=== PATIENT | female | born 1940 | race Caucasian/White ===

== ENCOUNTER 2016-11-13 17:34 | Emergency (ER) | payer MEDICARE, OTHER ==
[2016-11-13 17:50] VITALS: BP 153/75
--- NOTE | 2016-11-13 18:06 | EDM.PDOC ---
ED HISTORY OF PRESENT ILLNESS - General Chief Complaint: Respiratory Problem Stated Complaint: FEVER, CONGESTION Time Seen by Provider: 11/13/16 18:06 Source of Information: Reports: Patient - History of Present Illness INITIAL COMMENTS - FREE TEXT/NARRATIVE: Patient started with fever, cough and myalgias on Tuesday. These have persisted since then, she notes maybe mild improvement since that time. Has had fever up to 106, this does come down with anti-pyretic. She has had decreased appetite, had soup today and tolerating fluids well. She has diabetes, is on only glipizide for this. Was prescribed Levemir for this in the past, only uses if fasting glucose over 100 and she reports not needing this in 2 years. Denies chronic heart or pulmonary disease. - Related Data Allergies/ADRs: Allergies Allergy/AdvReac Type Severity Reaction Status Date / Time Corticosteroids Allergy Swollen Verified 11/13/16 17:45 (Glucocorticoids) Tongue Penicillins Allergy Swollen Verified 11/13/16 17:45 Tongue steroids Allergy Swollen Uncoded 11/13/16 17:45 Tongue Home Meds: Home Meds Cetirizine HCl [Zyrtec] 05/09/14 [History] Furosemide [Lasix] 40 mg PO DAILY 05/09/14 [History] Levothyroxine [Synthroid] 50 mcg PO DAILY 05/09/14 [History] glipiZIDE [Glipizide ER] 10 mg PO DAILY 05/09/14 [History] Aspirin [Ecotrin] 81 mg PO DAILY 11/13/16 [History] Omeprazole 20 mg PO DAILY 11/13/16 [History] Simvastatin [Zocor] 10 mg PO BEDTIME 11/13/16 [History] Social & Family History - Tobacco Use Smoking Status *Q: Never Smoker ED ROS GENERAL - Review of Systems Review Of Systems: See Below Constitutional: Reports: fever, chills, malaise, weakness, fatigue, decreased appetite HEENT: Reports: Rhinitis, Sinus problem. Denies: Throat pain, Vertigo Respiratory: Reports: Shortness of Breath, Cough, Sputum, Hemoptysis. Denies: Wheezing Cardiovascular: Reports: No symptoms GI/Abdominal: Reports: Decreased appetite, Nausea. Denies: Abdominal pain, Constipation, Diarrhea, Vomiting Musculoskeletal: Reports: no symptoms Skin: Reports: no symptoms Neurological: Reports: No Symptoms Psychiatric: Reports: No symptoms ED EXAM, GENERAL - Physical Exam Exam: See Below Exam Limited By: No limitations General Appearance: alert, WD/WN, no apparent distress Ears: normal external exam, normal canal, normal TMs Nose: normal inspection, normal mucosa, clear rhinorrhea Throat/Mouth: Normal inspection, Normal oropharynx Neck: normal inspection, non-tender, full range of motion Respiratory/Chest: no respiratory distress, chest non-tender, wheezing ( Occasional, scattered bilaterally) Course - Vital Signs Last Recorded V/S: Last Vital Signs Temp 98.5 F 11/13/16 17:46 Pulse 71 11/13/16 17:46 Resp 20 11/13/16 17:46 BP 153/75 H 11/13/16 17:46 Pulse Ox 95 11/13/16 17:46 - Orders/Labs/Meds Orders: Active Orders 24 hr Category Date Time Status CXR [Chest 2V] [CR] Stat Exams 11/13/16 18:16 Taken Head wo Cont [CT] Stat Exams 11/13/16 19:37 Ordered TROPONIN I [CHEM] Stat Lab 11/13/16 19:37 Ordered Labs: Laboratory Tests 11/13/16 11/13/16 Range/Units 18:40 18:40 WBC 4.82 (3.98-10.04) K/mm3 RBC 4.05 (3.98-5.22) M/mm3 Hgb 12.0 (11.2-15.7) gm/L Hct 35.4 (34.1-44.9) % MCV 87.4 (79.4-94.8) fl MCH 29.6 (25.6-32.2) pg MCHC 33.9 (32.2-35.5) g/dl RDW Std Deviation 38.4 (36.4-46.3) fL Plt Count 141 L (182-369) K/mm3 MPV 9.4 (9.4-12.3) fl Neutrophils % (Manual) 70 H (40-60) % Band Neutrophils % 0 (0-10) % Lymphocytes % (Manual) 22 (20-40) % Atypical Lymphs % 0 % Monocytes % (Manual) 6 (2-10) % Eosinophils % (Manual) 1 (0.7-5.8) % Basophils % (Manual) 1 (0.1-1.2) Platelet Estimate Adequate RBC Morph Comment Normal Sodium 135 L (136-145) mEq/L Potassium 3.7 (3.5-5.1) mEq/L Chloride 101 (98-107) mEq/L Carbon Dioxide 28 (21-32) mEq/L Anion Gap 9.7 (5-15) BUN 9 (7-18) mg/dL Creatinine 0.8 (0.55-1.02) mg/dL Est Cr Clr Drug Dosing 52.47 mL/min Estimated GFR (MDRD) > 60 (>60) mL/min BUN/Creatinine Ratio 11.3 L (14-18) Glucose 93 (83-115) mg/dL Calcium 8.8 (8.5-10.1) mg/dL Total Bilirubin 0.2 (0.2-1.0) mg/dL AST 18 (15-37) U/L ALT 20 (14-59) U/L Alkaline Phosphatase 74 (46-116) U/L C-Reactive Protein 15.5 H* (<1.0) mg/dL Total Protein 6.3 L (6.4-8.2) g/dl Albumin 2.8 L (3.4-5.0) g/dl Globulin 3.5 gm/dL Albumin/Globulin Ratio 0.8 L (1-2) - Re-Assessments/Exams Free Text/Narrative Re-Assessment/Exam: Lungs CTA bilaterally and CXR unremarkable. Influenza B positive, WBC 4,820 and CRP 15.5. Tamiflu not indicated. Recommend rest and increased fluids. Tylenol or ibuprofen as needed for pain. Patient is to follow-up with PCP next week or return to ER if any worsening. 11/13/16 19:40 Departure - Departure Time of Disposition: 19:38 Disposition: Home, Self-Care 01 Condition: good Clinical Impression: Influenza B Forms: ED Department Discharge Additional Instructions: Rest, diet as tolerated, increase oral fluids. Tylenol or ibuprofen as needed for fever and muscle aches. Follow-up with [facility] next week or certainly return to ER if any worsening. - My Orders Last 24 Hours: My Active Orders 11/13/16 18:16 CXR [Chest 2V] [CR] Stat - Assessment/Plan Last 24 Hours: My Active Orders 11/13/16 18:16 CXR [Chest 2V] [CR] Stat
--- NOTE | 2016-11-14 09:26 | CR ---
Chest: Two views of the chest were obtained. Slight parenchymal density within the right upper lung is seen. Minimal increased markings within the left upper perihilar region are seen. Mild increased perihilar markings within the right lung base also noted. Mild atelectasis noted within the left lateral costophrenic angle. Heart size and mediastinum are normal. Mild degenerative change noted within the mid thoracic spine. Minimal compression deformity seen within the mid thoracic spine. Surgical clips seen from prior cholecystectomy. Impression: 1. Focal parenchymal density within the right upper lung likely representing early area of pneumonia, please correlate if patient has infectious symptoms. 2. Mild increased perihilar markings within the left upper and right lower lung compatible with focal bronchitis. 3. Other incidental findings as noted above. Diagnostic code #3
== END 2016-11-13 19:45 | disposition home or self-care (01) ==
LOC: JD.ED 17:34
DX: J10.1 Influenza due to other identified influenza virus with other respiratory manifestations (principal); Z88.8 Allergy status to other drugs, medicaments and biological substances; Z88.0 Allergy status to penicillin; Z79.899 Other long term (current) drug therapy; Z79.82 Long term (current) use of aspirin
CPT/HCPCS: 36415; 71020; 71020-26; 80053; 85025; 86140; 87804; 99282; 99284

== ENCOUNTER 2019-01-02 18:33 | Emergency (ER) | payer MEDICARE, OTHER ==
[2019-01-02 18:42] VITALS: BP 190/93
[2019-01-02] MEDS ORDERED: Albuterol/Ipratropium 3.0-0.5 MG/3 ML Neb Soln NEB ONE (18:46)
[2019-01-02] MEDS ORDERED: Sodium Chloride 0.9% 10 ML Syringe FLUSH PRN (18:57)
[2019-01-02] MEDS ORDERED: predniSONE 20 MG Tab PO ONE (19:19)
--- NOTE | 2019-01-02 19:28 | EDM.PDOC ---
ED HPI GENERAL MEDICAL PROBLEM - General Chief Complaint: Respiratory Problem Stated Complaint: [facility] Time Seen by Provider: 01/02/19 18:41 Source of Information: Reports: Patient History Limitations: Reports: No Limitations - History of Present Illness INITIAL COMMENTS - FREE TEXT/NARRATIVE: 78 y/o female presents to ER with cc shortness of breath. She states at 1745 this evening her breathing became labored and she was wheezing. She used her Ventolin inhaler but it didn't help. She is seeing a Drilling Foreman in [place] recently who started her on Singular along with the Ventolin. She reports over the past few months she has had a persistent cough which seems to be getting worse. She denies any fever or chills. She denies chest pain. She is accompanied by her and son. She is audibly wheezing at this time. Onset: Today, Sudden Onset Date: 01/02/19 Onset Time: 17:45 Duration: Getting Worse Location: Reports: Chest Severity: Mild Improves with: Reports: None Worsens with: Reports: Breathing Associated Symptoms: Reports: Shortness of Breath. Denies: Chest Pain, Fever/ Chills, Nausea/Vomiting, Syncope - Related Data Allergies Allergy/AdvReac Type Severity Reaction Status Date / Time Corticosteroids Allergy Swollen Verified 01/02/19 18:42 (Glucocorticoids) Tongue Penicillins Allergy Swollen Verified 01/02/19 18:42 Tongue steroids Allergy Swollen Uncoded 11/13/16 17:45 Tongue Home Meds: Home Meds Cetirizine HCl [Zyrtec] 05/09/14 [History] Furosemide [Lasix] 40 mg PO DAILY 05/09/14 [History] Levothyroxine [Synthroid] 50 mcg PO DAILY 05/09/14 [History] glipiZIDE [Glipizide ER] 10 mg PO DAILY 05/09/14 [History] Aspirin [Ecotrin] 81 mg PO DAILY 11/13/16 [History] Omeprazole 20 mg PO DAILY 11/13/16 [History] Simvastatin [Zocor] 10 mg PO BEDTIME 11/13/16 [History] Past Medical History HEENT History: Reports: Allergic Rhinitis, Impaired Vision Cardiovascular History: Reports: High Cholesterol PVC LOADER History: Reports: , Other (See Below) Other PVC LOADER History: 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; complete hysterectomy Musculoskeletal History: Reports: Fracture, Osteoporosis Other Musculoskeletal History: left ankle fracture; right tib/muriel fracture; left wrist fracture Endocrine/Metabolic History: Reports: Diabetes, Type II, Osteoporosis - Past Surgical History Musculoskeletal Surgical History: Reports: Other (See Below) Social & Family History - Tobacco Use Smoking Status *Q: Never Smoker - Caffeine Use Caffeine Use: Reports: None - Recreational Drug Use Recreational Drug Use: No ED ROS GENERAL - Review of Systems Review Of Systems: See Below Constitutional: Denies: Fever, Chills HEENT: Reports: Glasses Respiratory: Reports: Shortness of Breath, Wheezing, Cough Cardiovascular: Denies: Chest Pain Endocrine: Reports: No Symptoms GI/Abdominal: Reports: No Symptoms : Reports: No Symptoms, Urinary Retention Musculoskeletal: Reports: Muscle Pain Skin: Reports: No Symptoms Neurological: Reports: No Symptoms Psychiatric: Reports: No Symptoms Hematologic/Lymphatic: Reports: No Symptoms Immunologic: Reports: No Symptoms ED EXAM, GENERAL - Physical Exam Exam: See Below Exam Limited By: No Limitations General Appearance: Alert, WD/WN, No Apparent Distress Ears: Normal External Exam, Normal Canal, Hearing Grossly Normal, Normal TMs Nose: Normal Inspection, Normal Mucosa, No Blood Throat/Mouth: Normal Inspection, Normal Lips, Normal Teeth, Normal Gums, Normal Oropharynx, Normal Voice, No Airway Compromise Head: Atraumatic, Normocephalic Neck: Normal Inspection, Supple, Non-Tender, Full Range of Motion Respiratory/Chest: No Accessory Muscle Use, Chest Non-Tender, Wheezing Cardiovascular: Normal Peripheral Pulses, Regular Rate, Rhythm, No Edema, No Gallop, No JVD, No Murmur, No Rub Extremities: Normal Inspection, Normal Range of Motion, Non-Tender, No Pedal Edema, Normal Capillary Refill Neurological: Alert, Oriented, CN II-XII Intact, Normal Cognition, Normal Gait Psychiatric: Normal Affect, Normal Mood Skin Exam: Warm, Dry, Intact, Normal Color, No Rash Lymphatic: No Adenopathy EKG INTERPRETATION EKG Date: 01/02/19 Rhythm: NSR Rate (Beats/Min): 63 Course - Vital Signs Last Recorded V/S: Last Vital Signs Temp 98.6 F 01/02/19 18:39 Pulse 82 01/02/19 18:39 Resp 22 H 01/02/19 18:39 BP 190/93 H 01/02/19 18:39 Pulse Ox 95 01/02/19 19:47 - Orders/Labs/Meds Orders: Active Orders 24 hr Category Date Time Status EKG Documentation Completion [RC] STAT Care 01/02/19 18:56 Active RT Aerosol Therapy [RC] ASDIRECTED Care 01/02/19 18:46 Active RT Aerosol Therapy [RC] ASDIRECTED Care 01/02/19 19:33 Active Chest 2V [CR] Stat Exams 01/02/19 18:46 Taken Labs: Laboratory Tests 01/02/19 01/02/19 Range/Units 19:24 19:24 WBC 6.97 (3.98-10.04) K/mm3 RBC 4.71 (3.98-5.22) M/mm3 Hgb 13.7 D (11.2-15.7) gm/L Hct 41.4 (34.1-44.9) % MCV 87.9 (79.4-94.8) fl MCH 29.1 (25.6-32.2) pg MCHC 33.1 (32.2-35.5) g/dl RDW Std Deviation 40.1 (36.4-46.3) fL Plt Count 208 (182-369) K/mm3 MPV 9.5 (9.4-12.3) fl Neut % (Auto) 56.0 (34.0-71.1) % Lymph % (Auto) 29.3 (19.3-51.7) % Mercer % (Auto) 7.0 (4.7-12.5) % Eos % (Auto) 6.9 H (0.7-5.8) Baso % (Auto) 0.7 (0.1-1.2) % Neut # (Auto) 3.90 (1.56-6.13) K/mm3 Lymph # (Auto) 2.04 (1.18-3.74) K/mm3 Mercer # (Auto) 0.49 H (0.24-0.36) K/mm3 Eos # (Auto) 0.48 H (0.04-0.36) K/mm3 Baso # (Auto) 0.05 (0.01-0.08) K/mm3 Sodium 137 (136-145) mEq/L Potassium 4.3 (3.5-5.1) mEq/L Chloride 102 (98-107) mEq/L Carbon Dioxide 25 (21-32) mEq/L Anion Gap 14.3 (5-15) BUN 19 H (7-18) mg/dL Creatinine 1.0 (0.55-1.02) mg/dL Est Cr Clr Drug Dosing 37.26 mL/min Estimated GFR (MDRD) 54 (>60) mL/min BUN/Creatinine Ratio 19.0 H (14-18) Glucose 137 H (83-115) mg/dL Calcium 8.9 (8.5-10.1) mg/dL Total Bilirubin 0.3 (0.2-1.0) mg/dL AST 23 (15-37) U/L ALT 32 (14-59) U/L Alkaline Phosphatase 82 (46-116) U/L Troponin I 0.108 H* (0.00-0.056) ng/mL Total Protein 6.9 (6.4-8.2) g/dl Albumin 3.5 (3.4-5.0) g/dl Globulin 3.4 gm/dL Albumin/Globulin Ratio 1.0 (1-2) Meds: Medications Discontinued Medications Generic Name Dose Route Start Last Admin Trade Name Freq PRN Reason Stop Dose Admin Albuterol 2.5 mg 01/02/19 19:32 01/02/19 19:44 Proventil Neb Soln NEB 01/02/19 19:33 2.5 mg ONETIME ONE Administration Albuterol/Ipratropium 3 ml 01/02/19 18:46 01/02/19 18:59 Duoneb 3.0-0.5 Mg/3 Ml NEB 01/02/19 18:47 3 ml ONETIME ONE Administration Prednisone 60 mg 01/02/19 19:19 01/02/19 19:29 Prednisone PO 01/02/19 19:20 60 mg ONETIME ONE Administration Sodium Chloride 10 ml 01/02/19 18:57 Saline Flush FLUSH ASDIRECTED PRN Keep Vein Open - Re-Assessments/Exams Free Text/Narrative Re-Assessment/Exam: 01/02/19 19:50 She continues to have wheezing and rhonchi after dual neb treatment. I will add albuterol treatment and Prednisone 60 mg P.O. WBC 6.97 RBC 4.7 H & H 13.7/41.4. 01/02/19 20:15 Troponin is elevated 0.108 she denies chest pain. Chest x-ray unremarkable no infiltrates. I discussed transferring patient to [place] for further evaluation. Patient and family are in agreement. 01/02/19 20:56 Sp[address] to [place] one Dr. Curiel she accepted patient for transfer for further evaluation and treatment. 01/02/19 21:36 Patient transferred to [place] via ambulance she is stable at time of transfer. Departure - Departure Time of Disposition: 21:02 Disposition: DC/Tfer to Acute Hospital 02 Condition: Good Clinical Impression: Elevated troponin I level, SOB (shortness of breath) - Discharge Information Referrals: PCP,Not In Area [Primary Care Provider] - Forms: ED Department Discharge - My Orders Last 24 Hours: My Active Orders 01/02/19 18:46 RT Aerosol Therapy [RC] ASDIRECTED Chest 2V [CR] Stat 01/02/19 18:56 EKG Documentation Completion [RC] STAT - Assessment/Plan Last 24 Hours: My Active Orders 01/02/19 18:46 RT Aerosol Therapy [RC] ASDIRECTED Chest 2V [CR] Stat 01/02/19 18:56 EKG Documentation Completion [RC] STAT
[2019-01-02] MEDS ORDERED: Albuterol 0.083% 2.5 MG/3 ML Neb Soln NEB ONE (19:32)
--- NOTE | 2019-01-03 11:40 | CR ---
Chest: Two views of the chest were obtained. Comparison: Prior chest x-ray of 10/31/18. Heart size and mediastinum are normal. Lungs are clear but hyperinflated compatible with emphysematous change. Mild scoliosis is noted within the spine with kyphosis. Mild compression deformities are seen within the mid thoracic spine which are stable. Scattered degenerative change is also noted within the spine. Surgical clips are noted within the upper abdomen compatible with previous cholecystectomy. Impression: 1. Incidental findings. Nothing acute is identified. Diagnostic code #2
== END 2019-01-02 21:43 ==
LOC: JD.ED 18:33
DX: R06.02 Shortness of breath (principal); R79.89 Other specified abnormal findings of blood chemistry; E78.00 Pure hypercholesterolemia, unspecified; E11.9 Type 2 diabetes mellitus without complications; Z88.5 Allergy status to narcotic agent; Z79.899 Other long term (current) drug therapy; Z88.0 Allergy status to penicillin
CPT/HCPCS: 36415; 71046; 80053; 84484; 85025; 93005; 94640; 99285; A9270; 93010; J7620-GY

== ENCOUNTER 2024-01-11 10:57 | Emergency (ER) | payer MEDICARE, OTHER ==
[2024-01-11] MEDS: Albuterol 0.083% 2.5 MG/3 ML Neb Soln NEB ONE (11:55)
[2024-01-11 12:31] LABS: BASOPHILS ABSOLUTE AUTO 0.1 K/mm3 (0.0-0.2); BASOPHILS PERCENT AUTO 0.7 % (0.0-1.0); EOSINOPHILS ABSOLUTE AUTO 0.1 K/mm3 (0.0-0.4); EOSINOPHILS PERCENT AUTO 1.2 % (0.0-6.0); HEMATOCRIT 36.2 % (37.0-47.0); HEMOGLOBIN 12.4 gm/dl (12.0-16.0); IMMATURE GRAN ABSOLUTE AUTO 0.02 K/mm3 (0.00-0.05); IMMATURE GRAN PERCENT AUTO 0.3 % (0.0-0.4); LYMPHOCYTES ABSOLUTE AUTO 0.4 K/mm3 (1.0-4.8); LYMPHOCYTES PERCENT AUTO 6.1 % (24.0-44.0); MEAN CORPUSCULAR HEMOGLOBIN 29.3 pg (28.0-32.0); MEAN CORPUSCULAR HGB CONC 34.3 g/dl (32.0-36.0); MEAN CORPUSCULAR VOLUME 85.6 fl (83.0-99.0); MEAN PLATELET VOLUME 9.2 fl (9.4-12.3); MONOCYTES ABSOLUTE AUTO 0.3 K/mm3 (0.0-0.8); MONOCYTES PERCENT AUTO 3.9 % (0.0-8.0); NEUTROPHILS ABSOLUTE AUTO 6.4 K/mm3 (1.8-7.7); NEUTROPHILS PERCENT AUTO 87.8 % (41.0-71.0); PLATELET COUNT,PLT 153 K/mm3 (150-400); RED BLOOD CELL COUNT 4.23 M/mm3 (4.10-5.30); WHITE BLOOD CELL COUNT,WBC 7.26 K/mm3 (3.9-11.3)
[2024-01-11 12:35] LABS: CORONAVIRUS COVID-19 NAA NEGATIVE (NEGATIVE); INFLUENZA A NAA NEGATIVE (NEGATIVE); RESPIRATORY SYNCYTIAL VIR NAA NEGATIVE (NEGATIVE)
[2024-01-11 12:51] LABS: A/G RATIO 1.1 (1-2); ALBUMIN 3.5 g/dl (3.4-5.0); ANION GAP 14.2 (5-15); BILIRUBIN TOTAL 0.6 mg/dL (0.2-1.0); BUN/CREATININE RATIO 12.5 (14-18); C-REACTIVE PROTEIN 2.14 mg/dL (<0.30); CALCIUM 8.7 mg/dL (8.5-10.1); CREATININE 0.8 mg/dL (0.55-1.02); EST CRCL DRUG DOSING (CG) 44.85 mL/min; POTASSIUM,K 4.2 mEq/L (3.5-5.1); PROTEIN TOTAL,TP 6.7 g/dl (6.4-8.2)
[2024-01-11] MEDS: predniSONE 20 MG Tab PO ONE (15:31)
[2024-01-11 16:05] VITALS: BP 159/66; PULSE 79
== END 2024-01-11 15:55 | disposition home or self-care (01) ==
LOC: JD.ED 10:57
DX: J45.901 Unspecified asthma with (acute) exacerbation (principal); I10 Essential (primary) hypertension; E78.00 Pure hypercholesterolemia, unspecified; J45.909 Unspecified asthma, uncomplicated; K21.9 Gastro-esophageal reflux disease without esophagitis; E11.9 Type 2 diabetes mellitus without complications; Z86.16 Personal history of COVID-19; Z88.8 Allergy status to other drugs, medicaments and biological substances; Z88.0 Allergy status to penicillin; Z79.890 Hormone replacement therapy; Z79.82 Long term (current) use of aspirin; Z79.899 Other long term (current) drug therapy
CPT/HCPCS: 0241U; 36415; 71045; 71250; 80053; 84484; 85025; 85379; 86140; 93005; 94640; 99285; J7512; J7620-GY

== ENCOUNTER 2025-05-24 13:24 | Emergency (ER) | payer MEDICARE, OTHER ==
[2025-05-24] MEDS: Acetaminophen/HYDROcodone 325-5 MG Tab PO STA (14:16)
[2025-05-24] MEDS: Ondansetron 4 MG Tab.DIS PO ONE (14:16)
[2025-05-24] MEDS ORDERED: Naloxone 0.4 MG/ML SDV IVPUSH PRN (15:41)
[2025-05-24] MEDS: fentaNYL 100 MCG/2 ML SDV IM STA (15:58)
[2025-05-24 16:38] VITALS: BP 143/58; PULSE 64
== END 2025-05-24 16:14 | disposition home or self-care (01) ==
LOC: JD.ED 13:24
DX: S02.2XXA Fracture of nasal bones, initial encounter for closed fracture (principal); R04.0 Epistaxis; S42.212A Unspecified displaced fracture of surgical neck of left humerus, initial encounter for closed fracture; E78.00 Pure hypercholesterolemia, unspecified; I10 Essential (primary) hypertension; K21.9 Gastro-esophageal reflux disease without esophagitis; E11.9 Type 2 diabetes mellitus without complications; Z86.16 Personal history of COVID-19; Z88.8 Allergy status to other drugs, medicaments and biological substances; Z88.0 Allergy status to penicillin; Z79.82 Long term (current) use of aspirin; Z79.890 Hormone replacement therapy; Z79.899 Other long term (current) drug therapy; W18.39XA Other fall on same level, initial encounter; Y93.89 Activity, other specified
CPT/HCPCS: 70450; 70486; 73030; 96372; 99284; A9270; J3010